=== PATIENT | male | born 1935 | race Caucasian/White ===

== ENCOUNTER 2016-08-30 18:43 | Emergency (ER) | payer OTHER ==
[~2016-08-30] VITALS: Ht 172.7 cm; Wt 76.7 kg
[~2016-08-30 18:43] MED LIST: ALEVE220 MG PO; ASPIRIN EC325 MG PO; CELECOXIB200 MG PO; DAILY VALUE1 EACH PO; HYDROCODON-ACE1 EAC7 PO; IRON325 M1 PO; LECITHIN1200 MG PO; VITAMIN C1000 MG PO
[2016-08-30 19:25] LABS: EOSINOPHIL (%) 0 % (0-5); IMMATURE GRANULOCYTE (%) 0.3 % (0.0-0.7); IMMATURE GRANULOCYTE COUNT 0.1 K/uL; LYMPHOCYTE COUNT 0.8 K/uL (1.0-2.8); MCH 30.6 PG (29.0-34.0); MCV 90.1 FL (86-99); MEAN PLAT.VOLUME 9.9 uM^3 (9.0-12.4); MONOCYTE COUNT 1.2 K/uL (0-0.8); NEUTROPHIL (%) 86.4 % (45-76); PLATELET COUNT 199 K/uL (156-360); RBC DIS.WIDTH-CV 12.8 % (11.8-14.6); RBC DIS.WIDTH-SD 42.6 % (39-53); RED BLOOD COUNT 4.44 M/uL (4.00-5.50); WHITE BLOOD COUNT 15.1 K/uL (4.1-10.2)
[2016-08-30 19:45] LABS: CHLORIDE 102 mEq/L (99-109); POTASSIUM 4.2 mEq/L (3.7-5.4); SODIUM 134 mEq/L (136-147)
[2016-08-30] MEDS ORDERED: TAMSULOSIN HCL0.4 MG PO (19:46)
[2016-08-30 19:47] LABS: GLUCOSE 122 mg/dL (70-99)
[2016-08-30 19:48] LABS: ANION GAP 9 MEQ/L (2-14)
[2016-08-30 19:49] LABS: TOTAL BILIRUBIN 0.9 mg/dL (0.0-1.0)
[2016-08-30 19:51] LABS: ALKALINE PHOSPHATASE 62 IU/L (3-129); GFR ESTIMATE (CALCULATED) > 59 mL/min/
[2016-08-30 19:52] LABS: UREA NITROGEN (BUN) 16 mg/dL (9-23)
[2016-08-30 19:54] LABS: LIPASE 6 U/L (1.0-51.0)
[2016-08-30 22:11] LABS: ADD MIUA? NO; BILIRUBIN NEGATIVE; BLOOD NEGATIVE; COLOR STRAW ((YELLOW)); GLUCOSE (STRIP) NEGATIVE; KETONES NEGATIVE; LEUKOCYTES NEGATIVE; NITRITE NEGATIVE; PROTEIN (STRIP) NEGATIVE; SPECIFIC GRAVITY 1.019 (1.000-1.030); UROBILINOGEN 0.2 MG/DL (0.2-1.0)
[2016-08-30] MEDS ORDERED: ZOFRAN ODT4 MG PO (22:32)
[2016-08-30] MEDS ORDERED: CIPRO500 MG PO (22:32)
[2016-08-30] MEDS ORDERED: FLAGYL500 MG PO (22:32)
[2016-08-30] MEDS ORDERED: ULTRACET1 TABLET PO (22:32)
[2016-08-30 23:18] VITALS: BP 100/62
== END 2016-08-30 23:28 | disposition home or self-care (01) ==
LOC: EME 18:43
PROVIDERS: Physician Assistant
DX: K57.92 Diverticulitis of intestine, part unspecified, without perforation or abscess without bleeding (principal); Z85.46 Personal history of malignant neoplasm of prostate; Z96.652 Presence of left artificial knee joint; Z87.891 Personal history of nicotine dependence
CPT/HCPCS: 74177; 80053; 81003; 83690; 85025; 99281; 99285; J2405; J3010; J7030